=== PATIENT | female | born 1995 | race Caucasian/White ===

== ENCOUNTER 2017-09-14 13:12 | Emergency (ER) | payer OTHER, MEDICAID ==
[~2017-09-14] VITALS: Ht 152.4 cm; Wt 35.4 kg
[~2017-09-14 13:12] MED LIST: ACETAMINOPHEN-1 EAC1 PO; CARAFATE 1 GM TA1 GM PO; CEFDINIR300 MG PO; ERYTHROMYCIN500 MG PO; FLONASE 0.05%50 MCG NASAL; NUVARING VAGIN1 EACH VG
[2017-09-14 13:21] VITALS: BP 126/69
[2017-09-14] MEDS ORDERED: CLEOCIN HCL150 MG PO (13:30)
[2017-09-14] MEDS ORDERED: ACETAMINOPHEN-1 EAC1 PO (13:30)
== END 2017-09-14 13:35 | disposition home or self-care (01) ==
LOC: M.ERS 13:12
DX: K08.89 Other specified disorders of teeth and supporting structures (principal); Z88.1 Allergy status to other antibiotic agents; Z88.0 Allergy status to penicillin

== ENCOUNTER 2018-10-14 14:55 | Emergency (ER) | payer OTHER ==
[~2018-10-14] VITALS: Ht 154.9 cm; Wt 36.3 kg
[~2018-10-14 14:55] MED LIST changes: +CLEOCIN HCL150 MG PO
[2018-10-14] MEDS ORDERED: TYLENOL EXTRA500 MG PO (15:24)
[2018-10-14 15:48] LABS: URINE BILIRUBIN NEGATIVE (Negative); URINE BLOOD 1+ (Negative); URINE CLARITY CLOUDY; URINE COLOR YELLOW; URINE GLUCOSE-RANDOM NEGATIVE (Negative); URINE KETONES NEGATIVE (Negative); URINE LEUKOCYTES-REFLEX NEGATIVE (Negative); URINE NITRITE-REFLEX NEGATIVE (Negative); URINE PROTEIN TRACE (Negative); URINE SPECIFIC GRAVITY 1.025 (1.005-1.030); URINE UROBILINOGEN 0.2 E.U./dl (0.2-1.0)
[2018-10-14 15:54] LABS: SQUAMOUS >10 Many /LPF (0-3)
[2018-10-14 15:54] LABS: ABSOLUTE BASOPHILS 0.1 thou/uL (0.0-0.2); ABSOLUTE EOSINOPHILS 0.1 thou/uL (0.0-0.7); ABSOLUTE LYMPHOCYTES 2.1 thou/uL (0.8-5.3); ABSOLUTE MONOCYTES 0.7 thou/uL (0.0-1.2); BASOPHILS 0.9 %; EOSINOPHILS 0.5 %; HEMATOCRIT 35.1 % (37.0-47.0); HEMOGLOBIN 11.6 gm/dL (12.0-15.0); LYMPHOCYTES 16.4 %; MCH 28.1 pg (26.0-34.0); MCHC 33.1 g/dL (28.0-37.0); MCV 84.8 fL (80.0-100.0); MONOCYTES 5.6 %; MPV 7.1 fl. (7.2-11.1); NUCLEATED RBCS 0 /100WBC; PLATELET COUNT* 798 thou/uL (150-400); POLYS 76.6 %; RBC 4.14 mil/uL (4.20-5.00); RDW-CV 15.4 % (10.5-14.5)
[2018-10-14 15:56] LABS: AMORPHOUS URATES Moderate /LPF (None Seen); BACTERIA-REFLEX None Seen /HPF (None Seen); CASTS None Seen /LPF (None Seen); CRYSTALS None Seen /LPF (None Seen); URINE RBC 0-2 Rare /HPF (0-2); URINE WBC-REFLEX None Seen /HPF (0-5)
[2018-10-14 16:06] LABS: ALBUMIN 3.2 g/dL (3.4-5.0); CALCIUM 9.7 mg/dL (8.5-10.1); CREATININE 0.7 mg/dL (0.6-1.3); POTASSIUM 3.6 mmol/L (3.5-5.1); TOTAL BILIRUBIN 0.2 mg/dL (<0.1-1.0); TOTAL PROTEIN 8.8 g/dL (6.4-8.2)
[2018-10-14 18:42] VITALS: BP 100/62
== END 2018-10-14 18:42 | disposition short-term general hospital (02) ==
LOC: M.ERS 14:55
PROVIDERS: Nurse Practitioner Family
DX: N70.93 Salpingitis and oophoritis, unspecified (principal); F17.200 Nicotine dependence, unspecified, uncomplicated; Z88.1 Allergy status to other antibiotic agents; Z88.8 Allergy status to other drugs, medicaments and biological substances; Z88.0 Allergy status to penicillin